=== PATIENT | male | born 1945 | race Caucasian/White ===

== ENCOUNTER → 2019-12-23 08:15 | Outpatient (BNVA) | payer OTHER, SELFPAY | PROVIDERS: PCP Family Medicine; Referring Provider Family Medicine; Visit Provider Licensed Practical Nurse | DX: R26.81 Unsteadiness on feet (principal); M50.90 Cervical disc disorder, unspecified, unspecified cervical region; M51.16 Intervertebral disc disorders with radiculopathy, lumbar region; M43.17 Spondylolisthesis, lumbosacral region | CPT/HCPCS: 99204 ==

== ENCOUNTER → 2020-03-01 13:07 | Outpatient (BNVA) | payer OTHER, SELFPAY | PROVIDERS: PCP Family Medicine; Visit Provider Specialist | DX: G62.9 Polyneuropathy, unspecified (principal); R26.81 Unsteadiness on feet; G57.91 Unspecified mononeuropathy of right lower limb; R20.0 Anesthesia of skin | CPT/HCPCS: 95908; 95909 ==

== ENCOUNTER → 2020-03-07 14:06 | Outpatient (BNVA) | payer OTHER, SELFPAY | PROVIDERS: PCP Family Medicine; Referring Provider Licensed Practical Nurse; Visit Provider Specialist | DX: G62.9 Polyneuropathy, unspecified (principal); R26.81 Unsteadiness on feet; G72.9 Myopathy, unspecified | CPT/HCPCS: 95860; 99213; 99215 ==

== ENCOUNTER → 2020-03-15 13:12 | Outpatient (BNVA) | payer OTHER, SELFPAY | PROVIDERS: PCP Family Medicine; Visit Provider Licensed Practical Nurse | DX: G62.9 Polyneuropathy, unspecified (principal); G72.9 Myopathy, unspecified | CPT/HCPCS: 99213 ==